=== PATIENT | female | born 1985 | race Caucasian/White ===

== ENCOUNTER 2023-12-22 16:05 | Emergency (ER) | payer OTHER, SELFPAY ==
[2023-12-22 16:10] VITALS: BP 149/98
--- NOTE | 2023-12-22 19:00 | ED.GENMED ---
History of Present Illness
<Apryl Quinteros MD - Last Filed: 12/22/23 19:12>
General
Chief Complaint: Head Injury
Time Seen by Provider: 12/22/23 17:49
<Gisel Cummins MD, Resident - Last Filed: 12/22/23 19:55>
General
Source: patient
Exam Limitations: other (Sudden Onset of Nausea W.O. Vomiting / Photo & Phono-phobia / RIGHT Retro Orbital Debilitating Pain, (Ipsilateral to sustained Injury))
History of Present Illness
History of Present Illness:
HPI:
38 yo Healthy Female, presenting to the ED after sustaining a R-Orbital head trauma with the trunk of her car around 1PM today, and was subsequently noted to have a mild-head concussion at the ED.
Patient complaints of experiencing mild TTP over ipsilateral orbital area and subjective Nausea/Photophobia & Dizziness, at the time she was initially see.
Pt denies any LOC, changes in vision or associated imbalance at the time of the head trauma.
At the Ed patient vitals - stable (except for unremarkable mild elevation in BP of 149/98 Initially)
No Concerning Neurologic findings Nor Vascular associated injuries noted upon pt PE at the ED.
Other than mild TTP over R-Orbital Area and associated bruising
NO protopsis, edema/swelling, crepitus nor bone abnormalities
Past History
<Gisel Cummins MD, Resident - Last Filed: 12/22/23 19:55>
Past History
ED Past Medical History: Other (ADHD, bulimia)
ED Past Surgical History: Gynecological; Negative Appendectomy
Social History
Tobacco: Former smoker
Alcohol: None
Drug: None
Personal:
Living: with family
Employment: Employed
Family History
Family History: Other (Noncontributory)
Review of Systems
<Gisel Cummins MD, Resident - Last Filed: 12/22/23 19:55>
Review of Systems
Allergies reviewed?: Yes
All Other Systems: ROS reviewed and negative except as documented in HPI and ROS
Phy Exam
<Gisel Cummins MD, Resident - Last Filed: 12/22/23 19:55>
General Physical Exam
General Presentation: well appearing and mild distress
General age: appears stated age
General Skin: warm and dry
General Habitus: normal
General Mental: alert and other (Mild Subjective Dizziness )
Eye Exam
Eye Exam: PERRL, EOMI, cornea clear and conjunctiva normal
Able to obtain acuity?: No
Eye Exam General: PERRL: bilateral and EOM intact: bilateral
Palpation of Globe: globe is tender: Right (Mild TTP over R-Orbital Area / NO Associated Crepitus/Fluctuance or Bone Abnormalities upon palpation )
Neurological Exam
Neurological Exam: oriented x3, CN II-XII intact, no motor deficits, no sensory deficits, speech normal and normal gait
Musculoskeletal Exam
Musculoskeletal Exam: full ROM, no edema and neuro vasc intact
Skin Exam
Skin Exam: normal color, warm/dry, erythema, laceration (R-Orbital Superficial laceration W. Associated Mild TTPand Bruising ) and redness
Psychiatric Exam
Psychiatric Exam: normal mood/affect
Course
<Apryl Quinteros MD - Last Filed: 12/22/23 19:12>
Orders/Labs/Results
Orders:
Orders
12/22/23 19:06
Tetanus/Diphth/Acelpertussis [Adacel] 0.5 ml IM .ONCE ONE
Vital Signs
Initial and Last Documented VS:
Initial Vital Signs
Temp Pulse Resp BP Pulse Ox
36.8 C 74 16 149/98 100
12/22/23 16:10 12/22/23 16:10 12/22/23 16:10 12/22/23 16:10 12/22/23 16:10
Last Documented Vital Signs
Temp Pulse Resp BP Pulse Ox
36.8 C 74 16 149/98 100
12/22/23 16:10 12/22/23 16:10 12/22/23 16:10 12/22/23 16:10 12/22/23 16:10
<Gisel Cummins MD, Resident - Last Filed: 12/22/23 19:55>
Orders/Labs/Results
Orders:
Orders
12/22/23 19:06
Tetanus/Diphth/Acelpertussis [Adacel] 0.5 ml IM .ONCE ONE
Vital Signs
Initial and Last Documented VS:
Initial Vital Signs
Temp Pulse Resp BP Pulse Ox
36.8 C 74 16 149/98 100
12/22/23 16:10 12/22/23 16:10 12/22/23 16:10 12/22/23 16:10 12/22/23 16:10
Last Documented Vital Signs
Temp Pulse Resp BP Pulse Ox
36.8 C 74 16 149/98 100
12/22/23 16:10 12/22/23 16:10 12/22/23 16:10 12/22/23 16:10 12/22/23 16:10
<Gisel Cummins MD, Resident - Last Filed: 12/22/23 19:55>
*Critical Care Note
Total Time (30-74mins, 75-104mins- exclusive of procedures): ~35 Min.
ED Attending Note
<Apryl Quinteros MD - Last Filed: 12/22/23 19:12>
ED Attending Note
I performed a history and physical exam of patient and discussed management with resident, I reviewed resident's note and agree with documented findings and plan of care.: Yes
ED Attending Note:
7:03 PM note H&P documentation from resident pending at this time but I will review once completed. Patient is a 32 female presents emergency department after moving quickly and hitting her head against the corner of the trunk of her car earlier
today. She did not fall down to the ground. However, she suffered a abrasion/laceration to the right lateral forehead area with minimal bleeding. She states since the event she feels 'weird' described as kind of dizzy, mild photophobia,, mild
headache, and not just a little off. She denies loss of consciousness, severe headache, double vision, blurry vision, eye pain, neck pain, chest pain, shortness of breath, numbness, tingling, focal weakness, imbalance, or other complaints. On
exam, GENERAL: Alert , in no apparent distress
EYE: pupils equal and reactive, EOMI, no objective photophobia, nystagmus, no hyphema, no signs of orbital/periorbital injury noted
NECK: Supple, no significant adenopathy, no midline tenderness.
ENT: o/p clr, mmm, no hightower, no raccoon, no rhinorrhea, no tenderness to palpation of facial bones, no signs of head or facial injury with the exception of a superficial linear shallow laceration noted at the lateral aspect of the forehead area.
CARDIAC: Regular rate and rhythm .
LUNGS: Clear breath sounds bilaterally, no acute respiratory distress, no wheezes/rales/rhonchi
ABDOMEN: Soft, without focal tenderness, no r/g, no cvat
NEUROLOGICAL: Alert and oriented, no focal neuro deficits, [id number] normal, motor 5 out of 5, gait normal, sensory intact, cranial nerves II through XII intact
SKIN: Warm and dry, skin intact except as noted above.
MUSCULOSKELETAL: No edema, well perfused.
PSYCH: Normal and appropriate interaction.
Patient presents to the Emergency Department with ___head/facial injury
Number and Complexity of Problems Addressed at the Encounter
� Chronic conditions affecting care:
� Acute Exacerbation and/or Progression of Chronic Illness:
� Differential Diagnosis includes: But not limited to laceration, abrasion, orbital injury, concussion, intracranial injury, etc. etc.
Amount and/or Complexity of Data to be Reviewed and Analyzed
� I performed an independent evaluation of and my interpretation is:
EKG:
CT:
Xrays:
Laboratory Studies:
Other:
� Review of other/old records reveals:
� Clinical information was obtained by an independent historian:
� Prescriptions/Medications Considered but not given:
� Further testing considered but not performed:
Risk of Complications and/or Morbidity or Mortality of Patient Management
� Social determinants of health affecting care:
� Discussion with other providers (PCP, Hospitalists, Consultants, etc):
� Escalation of care including admission/observation vs risk of discharge considered: Patient not up-to-date her tetanus was updated here in provide wound care, concussion discharge instructions. Emphasized with patient portance
of follow-up and reasons return to the ER.
<Jym Chin Cummins MD, Resident - Last Filed: 12/22/23 19:55>
-
Portions of this chart may have been created with voice recognition software.� Occasional wrong word or��sound alike� substitutions may have occurred due to the inherent limitations of voice recognition software.
Discharge Plan
Departure
Patient Disposition: Home (Routine Discharge)
Date of Disposition: 12/22/23
Time of Disposition: 19:49
Patient with high blood pressure during this ER visit?: Yes
Condition: Good
Discharge Problem:
Head concussion, Laceration of right orbital rim without complication
Instructions: Concussion in adults, Laceration Repair With Glue (DC), BLOOD PRESSURE
Prescriptions:
No Action
Vit #105/Iron/FA/Dha
1 tab PO DAILY
acetaminophen 325 mg Tablet
650 mg PO Q4HPRN PRN (Reason: mild pain) Qty: 0 0RF
ibuprofen 600 mg Tablet
600 mg PO Q6HPRN PRN (Reason: moderate pain/cramps) Qty: 0 0RF
Referrals:
Vickey Angela Jr., DO [Family Provider] - Follow up in 2-3 days
Activity Restrictions/Additional Instructions:
IF YOU DEVELOP SEVERE HEADACHE, VOMITING, VISUAL CHANGES, NUMBNESS, SEVERE DIZZINESS, GET WORSE, DO NOT GET BETTER, OR OTHER WORRISOME SIGNS, RETURN TO THE ED IMMEDIATELY!
Interventions
Interventions:
*Risk Screen - Suicide Last Done: 12/22/23 16:10
*General Assessment Last Done: 12/22/23 18:34
*Neglect/Abuse Screening Last Done: 12/22/23 16:10
ED- Fall Risk Assessment Last Done: 12/22/23 18:34
*ED COVID-19 Vaccine History Last Done: 12/22/23 18:34
ED- Neurological Assessment Last Done: 12/22/23 17:30
ED-Skin Assessment Last Done: 12/22/23 18:34
Discharge Date and Time
Print Language: GUINEAN
[2023-12-22] MEDS: ADACEL 0.5 ML IM (19:30)
[2023-12-22 20:13] VITALS: BP 136/81
== END 2023-12-22 20:15 | disposition home or self-care (01) ==
LOC: EMR 16:05
PROVIDERS: EMERGENCY PHYSICIAN Emergency Medicine; FAMILY PHYSICIAN Family Medicine
DX: S06.0XAA Concussion with loss of consciousness status unknown, initial encounter (principal); S01.111A Laceration without foreign body of right eyelid and periocular area, initial encounter; W22.8XXA Striking against or struck by other objects, initial encounter; Z87.891 Personal history of nicotine dependence; Z90.49 Acquired absence of other specified parts of digestive tract; Z23 Encounter for immunization
CPT/HCPCS: 99282; 90471; 90715

== ENCOUNTER 2024-03-26 16:22 | Emergency (ER) | payer OTHER, SELFPAY ==
[2024-03-26 16:25] VITALS: BP 95/75
[2024-03-26 16:42] LABS: % Basophils 0.3 % (0-2); % Eosinophils 0.2 % (0-6); % Immature Granulocytes 0.3 % (0-0.5); % Lymphocytes 0.7 % (20.5-51.1); % Monocytes 3.7 % (1.7-9.3); % Neutrophils 94.8 % (42.2-75.2); Absolute Lymphocytes 0.1 10^3/uL (1.2-3.4); Absolute Monocytes 0.4 10^3/uL (0.1-0.6); Absolute Neutrophils 11.2 10^3/uL (1.4-6.5); Hematocrit 47.5 % (37.0-47.0); Hemoglobin 16.4 g/dL (12.0-16.0); Mean Corp Hgb Conc. 34.5 g/dL (33.0-37.0); Mean Corpuscular Hgb 29.8 pg (27.0-31.0); Mean Corpuscular Volume 86.4 fL (81.0-99.0); Mean Platelet Volume 8.3 fL (7.4-10.4); Nucleated Red Blood Cells % 0 %; Platelet Count 293 10^3/uL (130-400); Red Cell Dist. Width 13.2 % (11.5-14.5); White Blood Cell Count 11.8 10^3/uL (4.8-10.8)
[2024-03-26 16:50] LABS: HCG, Serum Qualitative Screen Negative
[2024-03-26 16:52] LABS: ALT (SGPT) 31 U/L (0-35); AST (SGOT) 30 U/L (14-36); Albumin 5.2 g/dl (3.5-5.0); Alkaline Phosphatase 34 U/L (38-126); Blood Urea Nitrogen 24 mg/dl (7-17); Calcium 9.7 mg/dl (8.4-10.2); Carbon Dioxide 22 mmol/L (22-30); Chloride 104 mmol/L (98-107); Glucose 170 mg/dl (70-99); Lipase 46 U/L (23-300); Potassium 4.5 mmol/L (3.5-5.1); Sodium 139 mmol/L (135-145); Total Bilirubin 0.9 mg/dl (0.2-1.3); Total Protein 7.7 g/dl (6.3-8.2); eGFR > 60.00
--- NOTE | 2024-03-26 18:20 | ED.GENMED ---
History of Present Illness
General
Chief Complaint: Abdominal Symptoms
Source: patient
Exam Limitations: none
Time Seen by Provider: 03/26/24 18:07
Nursing documentation reviewed up to this point in time: agreed with
History of Present Illness
History of Present Illness:
pt is a 38 y/o F with h/o depresssion
here with N/V/D
started this morning
yesterday her daughter had the same thing vomiting/diarrhea and she was caring for her and then noticed she felt feverish but otherwise didn't have any other symptoms until this morning
she had diarrhea multiple times and then nausea/vomting started later
she probably vomited about 5 times and had 10+ episodes watery nonbloody diarrhea
no focal abdominal pain
has pain before having bm or vomiting
last episode of each was 4 pm
no former abdmoial surgeries
no cough/cold symtpoms
Past History
Past History
ED Past Medical History: Other (ADHD, bulimia)
ED Past Surgical History: Gynecological; Negative Appendectomy
Social History
Tobacco: Former smoker
Alcohol: None
Drug: None
Personal:
Living: with family
Employment: Employed
Family History
Family History: Other (Noncontributory)
Review of Systems
Review of Systems
Allergies reviewed?: Yes
All Other Systems: Not applicable
Phy Exam
Physical Exam
Physical Exam:
GENERAL: Alert , in no apparent distress
EYE: pupils equal and reactive
NECK: Supple
ENT: o/p clr, very dry mouth
CARDIAC: Regular rate and rhythm .
LUNGS: Clear breath sounds bilaterally, no acute respiratory distress, no wheezes/rales/rhonchi
ABDOMEN: Soft, without focal tenderness, no r/g, no cvat, normal bowel sounds
NEUROLOGICAL: Alert and oriented, no focal neuro deficits
SKIN: Warm and dry, skin intact.
MUSCULOSKELETAL: No edema, well perfused. neg kanchan's sign
PSYCH: Normal and appropriate interaction.
Course
Orders/Labs/Results
Orders:
Orders
03/26/24 16:27
Test Result ONCE
03/26/24 16:31
Comprehensive Metabolic Panel Urgent
HCG, Serum Qualitative Screen Urgent
Lipase Urgent
03/26/24 16:32
Complete Blood Count/With Diff Urgent
03/26/24 18:19
0.9% Sodium Chloride 1000 ml [Nss] 1,000 ml IV BOLUS
Ketorolac [Toradol] 15 mg IV NOW STA
Ondansetron Injectable [Zofran] 4 mg IV NOW STA
Abnormal Lab Results
03/26/24 03/26/24
16: 16:32
WBC 11.8 H 10^3/uL
(4.8-10.8)
RBC 5.50 H 10^6/uL
(4.20-5.40)
Hgb 16.4 H g/dL
(12.0-16.0)
Hct 47.5 H %
(37.0-47.0)
Absolute Neuts (auto) 11.2 H 10^3/uL
(1.4-6.5)
Absolute Lymphs (auto) 0.1 L 10^3/uL
(1.2-3.4)
Neutrophils % 94.8 H %
(42.2-75.2)
Lymphocytes % 0.7 L %
(20.5-51.1)
BUN 24 H mg/dl
(7-17)
Glucose 170 H mg/dl
(70-99)
Alkaline Phosphatase 34 L U/L
(38-126)
Albumin 5.2 H g/dl
(3.5-5.0)
03/26/24 16:32
03/26/24 16:31
Vital Signs
Initial and Last Documented VS:
Initial Vital Signs
Temp Pulse Resp BP Pulse Ox
36.8 C 127 20 95/75 99
03/26/24 16:25 03/26/24 16:25 03/26/24 16:25 03/26/24 16:25 03/26/24 16:25
Last Documented Vital Signs
Temp Pulse Resp BP Pulse Ox
37.5 C 101 20 115/67 100
03/26/24 19:05 03/26/24 21:32 03/26/24 16:25 03/26/24 21:32 03/26/24 21:32
MDM/Problems Addressed
Differential Diagnosis Includes:
GASTROENTERITIS, DEYDRATION
MDM/Problems Addressed:
38 y/o Fno sig pmh
here with n/v/d
daughter with same
waxing and waning pain, none now
not focal
subjective chills
looks dehydrated
mildly tachy on arrival
afebile
nontender abdomen
labs reassuring
likely viral
giavne IVF and zofran and tolerated po liquids
d/ch home
*Critical Care Note
Total Time (30-74mins, 75-104mins- exclusive of procedures): Not Applicable
ED Attending Note
-
Portions of this chart may have been created with voice recognition software.� Occasional wrong word or��sound alike� substitutions may have occurred due to the inherent limitations of voice recognition software.
Discharge Plan
Departure
Patient Disposition: Home (Routine Discharge)
Date of Disposition: 03/26/24
Time of Disposition: 20:52
Patient with high blood pressure during this ER visit?: No
Condition: Fair
Covid-19: Not Applicable
Discharge Problem:
Dehydration, Gastroenteritis
Instructions: Viral gastroenteritis in adults, Dehydration, Adult (DC)
Prescriptions:
New
ondansetron 4 mg tablet,disintegrating
4 mg PO Q8H PRN (Reason: nausea and vomiting) Qty: 3 0RF
No Action
Vit #105/Iron/FA/Dha
1 tab PO DAILY
acetaminophen 325 mg Tablet
650 mg PO Q4HPRN PRN (Reason: mild pain) Qty: 0 0RF
ibuprofen 600 mg Tablet
600 mg PO Q6HPRN PRN (Reason: moderate pain/cramps) Qty: 0 0RF
Referrals:
UNKNOWN - PT NOT,INTERVIEWE [Family Provider] -
Activity Restrictions/Additional Instructions:
You likely have a viral infection causing vomiting and diarrhea. We gave you fluids. You can use Zofran every 8 hours as needed for nausea and vomiting. Eat bland foods or just stick with liquids tonight and advance as tolerated. Return for
worsening pain, focal pain, high fevers not responding to Tylenol, bloody vomit or bloody diarrhea or any concern
Interventions
Interventions:
*Risk Screen - Suicide Last Done: 03/26/24 21:32
*General Assessment Last Done: 03/26/24 16:25
*Neglect/Abuse Screening Last Done: 03/26/24 21:32
ED- Fall Risk Assessment Last Done: 03/26/24 21:32
*ED COVID-19 Vaccine History Last Done: 03/26/24 21:32
*Nursing Disposition Last Done: 03/26/24 21:32
ZS-Zwcgnz-Vtqogibnaf Assessment Last Done: 03/26/24 21:32
Discharge Date and Time
Discharge Date/Time: 03/26/24 21:36
Print Language: SCOTTISH
[2024-03-26] MEDS: NSS 1000 IV (19:02)
[2024-03-26] MEDS: TORADOL 15 MG IV (19:03)
[2024-03-26] MEDS: ZOFRAN 4 MG IV (19:03)
[2024-03-26 19:05] VITALS: BP 119/70
[2024-03-26 21:32] VITALS: BP 115/67
== END 2024-03-26 21:36 | disposition home or self-care (01) ==
LOC: EMR 16:22
PROVIDERS: EMERGENCY PHYSICIAN Student in an Organized Health Care Education/Training Program
DX: E86.0 Dehydration (principal); K52.9 Noninfective gastroenteritis and colitis, unspecified; F90.9 Attention-deficit hyperactivity disorder, unspecified type; F50.20 Bulimia nervosa, unspecified; Z87.891 Personal history of nicotine dependence; Z90.49 Acquired absence of other specified parts of digestive tract
CPT/HCPCS: 99283; 96374; 96375; 96361; 80053; 83690; 84703; 85025

== ENCOUNTER → 2025-01-29 09:42 | Outpatient (REF) | payer OTHER, SELFPAY | LOC: HWRAD 09:42 | PROVIDERS: ATTENDING PHYSICIAN Internal Medicine Rheumatology; FAMILY PHYSICIAN Nurse Practitioner | DX: R06.02 Shortness of breath (principal) | CPT/HCPCS: 71250 ==